=== PATIENT | male | born 1950 | race Caucasian/White ===

== ENCOUNTER 2020-10-04 01:44 | Emergency (ER) | payer MEDICARE ==
[~2020-10-04] VITALS: Ht 185.4 cm; Wt 151.0 kg
[~2020-10-04 01:44] MED LIST: BENA20TA2 PO; EQUATE ALLERGY PO; FURO20TA4 PO; TRIA1CAP6 PO
[2020-10-04] MEDS ORDERED: morphine 4 MG/ML inj SYRINge IV PRN (01:55)
[2020-10-04] MEDS ORDERED: normal saline 1000ML IV soln IVB ONE (01:55)
[2020-10-04] MEDS ORDERED: ondansetron/PF 4mg/2ml inj IV ONE ×2 (01:55→02:25)
[2020-10-04 02:07] LABS: BASOPHILS # (AUTO) 0.1 X10'3 (0-0.2); BASOPHILS % (AUTO) 0.8 % (0-1); EOSINOPHILS # (AUTO) 0.2 X10'3 (0-0.9); EOSINOPHILS % (AUTO) 1.8 % (0-6); HEMATOCRIT 45.7 % (42.0-52.0); HEMOGLOBIN 15.6 g/dl (14.0-17.9); LYMPHOCYTES # (AUTO) 2.2 X10'3 (1.1-4.8); LYMPHOCYTES % (AUTO) 16.4 % (21-51); MEAN CORPUSCULAR HEMOGLOBIN 31.3 PG (27.0-31.0); MEAN CORPUSCULAR HGB CONC 34.1 g/dL (33.0-36.5); MEAN CORPUSCULAR VOLUME 91.9 FL (78-98); MEAN PLATELET VOLUME 8.1 FL (7.4-10.4); MONOCYTES # (AUTO) 1.2 X10'3 (0-0.9); MONOCYTES % (AUTO) 8.7 % (2-12); NEUTROPHILS # (AUTO) 9.6 X10'3 (1.8-7.7); NEUTROPHILS % (AUTO) 72.3 % (42-75); PLATELET COUNT 327 X10'3 (140-440); RED BLOOD COUNT 4.97 X10'6 (4.70-6.10); RED CELL DISTRIBUTION WIDTH 13.9 % (11.5-14.5); WHITE BLOOD COUNT 13.3 X10'3 (4.5-11.0)
[2020-10-04 02:20] LABS: ALANINE AMINOTRANSFERASE 46 U/L (12-78); ALBUMIN 3.8 G/DL (3.4-5.0); ALBUMIN/GLOBULIN RATIO 0.8 (1.1-1.5); ALKALINE PHOSPHATASE 78 IU/L (46-116); ANION GAP 10 (8-16); ASPARTATE AMINO TRANSFERASE 19 U/L (10-37); BILIRUBIN,TOTAL 0.4 MG/DL (0.1-1.0); BLOOD UREA NITROGEN 19 MG/DL (7-18); BUN/CREATININE RATIO 15.4 (5.4-32.0); CALCIUM 9.4 MG/DL (8.5-10.1); CHLORIDE 104 MMOL/L (99-107); CREATININE 1.23 MG/DL (0.60-1.10); GLUCOSE 108 MG/DL (70-104); LIPASE 70 U/L (73-393); POTASSIUM 3.9 MMOL/L (3.5-5.1); SODIUM 140 MMOL/L (135-145); TOTAL PROTEIN 8.3 G/DL (6.4-8.2); eGFR 58 ML/MIN
[2020-10-04 05:53] VITALS: BP 135/84
== END 2020-10-04 05:56 | disposition home or self-care (01) ==
LOC: ER 01:45
DX: K80.80 Other cholelithiasis without obstruction (principal); I10 Essential (primary) hypertension; Z87.19 Personal history of other diseases of the digestive system
CPT/HCPCS: 36415; 80053; 83690; 85025; 96374; 96375; 99284; J2270; J2405; J7030; 88304; 99285

== ENCOUNTER 2020-10-04 05:58 | Day surgery (SDC) | payer MEDICARE ==
[2020-09-27 16:00] LABS: BASOPHILS # (AUTO) 0.1 X10'3 (0-0.2); BASOPHILS % (AUTO) 0.8 % (0-1); EOSINOPHILS # (AUTO) 0.2 X10'3 (0-0.9); EOSINOPHILS % (AUTO) 1.6 % (0-6); LYMPHOCYTES # (AUTO) 2.6 X10'3 (1.1-4.8); LYMPHOCYTES % (AUTO) 21.8 % (21-51); MEAN CORPUSCULAR HEMOGLOBIN 31.1 PG (27.0-31.0); MEAN CORPUSCULAR HGB CONC 33.8 g/dL (33.0-36.5); MEAN CORPUSCULAR VOLUME 92.1 FL (78-98); MEAN PLATELET VOLUME 8.3 FL (7.4-10.4); MONOCYTES # (AUTO) 1.2 X10'3 (0-0.9); MONOCYTES % (AUTO) 10.1 % (2-12); NEUTROPHILS # (AUTO) 7.8 X10'3 (1.8-7.7); NEUTROPHILS % (AUTO) 65.7 % (42-75); PRE OP HEMATOCRIT 47.3 % (42.0-52.0); PRE OP PLATELET COUNT 327 X10'3 (140-440); RED BLOOD COUNT 5.13 X10'6 (4.70-6.10); RED CELL DISTRIBUTION WIDTH 14.2 % (11.5-14.5)
[2020-09-27 16:15] LABS: ALBUMIN 4.2 G/DL (3.4-5.0); ALBUMIN/GLOBULIN RATIO 0.9 (1.1-1.5); ALKALINE PHOSPHATASE 86 IU/L (46-116); BLOOD UREA NITROGEN 19 MG/DL (7-18); BUN/CREATININE RATIO 16.5 (5.4-32.0); CALCIUM 9.9 MG/DL (8.5-10.1); CHLORIDE 102 MMOL/L (99-107); CREATININE 1.15 MG/DL (0.60-1.10); PRE OP ALT 75 U/L (30-65); PRE OP ANION GAP 7 (8-16); PRE OP AST 42 U/L (10-37); PRE OP BILIRUB, TOTAL 0.6 MG/DL (0.0-1.0); PRE OP GLUCOSE 96 MG/DL (70-104); PRE OP POTASSIUM 4.2 MMOL/L (3.4-5.1); PRE OP SODIUM 137 MMOL/L (135-145); TOTAL CARBON DIOXIDE 28.1 MMOL/L (24-32); TOTAL PROTEIN 8.7 G/DL (6.4-8.2); eGFR 63 ML/MIN
[2020-10-04] VITALS (10 sets, daily range): BP systolic 107–137; BP diastolic 59–78
[~2020-10-04] VITALS: Ht 185.4 cm; Wt 140.6 kg
[~2020-10-04 05:58] MED LIST changes: +INDOCYANINE GREEN 25 MG/10 ML VIAL IV ONE; +ceFAZolin inj. 3,000 MG in normal saline 100ml IV soln 100 ML IV ONE; +famotidine 20mg tablet PO ONE; +ringers solution, lacted 1,000 ML IV SCH
[2020-10-04] MEDS ORDERED: LIDOcaine 1% (10mg/ml) 2ml vial ONE (06:31)
[2020-10-04] MEDS ORDERED: BUPIVAcaine/PF 2.5 mg/ml (0.25%) 30ml vial ONE (06:44)
[2020-10-04] MEDS ORDERED: LIDOcaine 1% 30ml preserv. free vial ONE (06:44)
[2020-10-04] MEDS ORDERED: fentaNYL/PF 50MCG/1 ML 2ML syringe ONE (09:41)
[2020-10-04] MEDS ORDERED: midazolam 2 mg/2 ml injection ONE (09:42)
[2020-10-04] MEDS ORDERED: rocuronium 10mg/ml inj IV ONE ×2 (09:42→10:48)
[2020-10-04] MEDS ORDERED: propofol inj 20 ML IV ONE (09:42)
[2020-10-04] MEDS ORDERED: meperidine/PF 25mg/ml syringe IV PRN ×3 (10:35)
[2020-10-04] MEDS ORDERED: morphine 2 MG/ML inj. syringe IV PRN (10:35)
[2020-10-04] MEDS ORDERED: ondansetron/PF 4mg/2ml inj IV PRN (10:35)
[2020-10-04] MEDS ORDERED: morphine 4 MG/ML inj SYRINge IV PRN (10:35)
[2020-10-04] MEDS ORDERED: ringers solution, lacted 1,000 ML IV SCH (10:35)
[2020-10-04] MEDS ORDERED: proCHLORperazine 10 MG/2 ml inj IV PRN (10:35)
[2020-10-04] MEDS ORDERED: ePHEDrine 50MG/ML INJ. ONE (10:48)
[2020-10-04] MEDS ORDERED: ondansetron/PF 4mg/2ml inj ONE (10:49)
[2020-10-04] MEDS ORDERED: dexamethasone sod phosphate 4mg/ml inj. ONE (10:49)
[2020-10-04] MEDS ORDERED: neostigmine methylsulfate 1 MG/ML 10ml vial ONE (11:20)
[2020-10-04] MEDS ORDERED: glycopyrrolate 0.2mg/ml inj ONE (11:21)
--- NOTE | 2020-10-04 11:41 | NUR ---
Received from OR via [facility] , accompanied by Anesthesiologist ARLETH and report given by Anesthesiolgist. PATIENT WITH 10L MASK ON WITH 5 LAP SITES TO ABDOMEN THAT ARE CDI. 10L MASK ON 98% SATURATIONS. 18G PIV IN RIGHT UE RUNNING LR AT 100. PATIENT FLAPPING ARMS ABOUT. Addendum: 10/04/20 at 1151 by Cory Faulkner RN, RN Amended: Links added.
[2020-10-04] MEDS ORDERED: oxyCODONE/APAP 5-325mg tablet PO PRN (11:45)
[2020-10-04] MEDS ORDERED: oxyCODONE/APAP 10/325mg tablet PO PRN (11:45)
--- NOTE | 2020-10-04 13:11 | NUR ---
PATIENT AND FAMILY AND THEY HAVE VERBALIZED UNDERSTANDING, OPPORTUNITY TO ASK QUESTIONS GIVEN AND PATIENT COMFORTABLE WITH DC. IV TAKEN OUT WITHOUT COMPLICATION. PATIENT HAS MET ALL DC CRITERIA FOR DC HOME. I HAVE REVIEWED D/C INSTRUCTIONS WITH OUT VIA WHEELCHAIR WHERE PATIENT WAS TAKEN HOME WITH ALL BELONGINGS. FAMILY GAVE PATIENT TRANSPORT HOME. FULL DISCUSSION AND AGREEMENT WITH AND PATIENT ABOUT USING CPAP. PATIENT TAKEN TO LOCAL HOTEL FOR THE NIGHT. Addendum: 10/04/20 at 1335 by Cory Escalante - PRINCESS SÁNCHEZ Amended: Links added.
== END 2020-10-04 13:29 | disposition home or self-care (01) ==
LOC: PAS 05:58
PROVIDERS: ATTEND Surgery
DX: K80.12 Calculus of gallbladder with acute and chronic cholecystitis without obstruction (principal); G47.30 Sleep apnea, unspecified; G89.29 Other chronic pain; M19.90 Unspecified osteoarthritis, unspecified site; M10.9 Gout, unspecified; I11.0 Hypertensive heart disease with heart failure; I50.9 Heart failure, unspecified; E66.01 Morbid (severe) obesity due to excess calories; Z68.41 Body mass index [BMI] 40.0-44.9, adult; F17.290 Nicotine dependence, other tobacco product, uncomplicated; Z96.652 Presence of left artificial knee joint; Z86.14 Personal history of Methicillin resistant Staphylococcus aureus infection; Z87.19 Personal history of other diseases of the digestive system; Z88.1 Allergy status to other antibiotic agents; Z88.8 Allergy status to other drugs, medicaments and biological substances; Z79.899 Other long term (current) drug therapy; Z98.890 Other specified postprocedural states; Z96.611 Presence of right artificial shoulder joint; Z82.49 Family history of ischemic heart disease and other diseases of the circulatory system
CPT/HCPCS: 36415; 47563; 80053; 85025; 87635; C1758; J0690; J1100; J2001; J2250; J2405; J2704; J2710; J3010; J3490; J7120; A4215; A4618; A7000